=== PATIENT | male | born 1990 | race African-American/Black ===

== ENCOUNTER 2019-06-13 18:22 | Emergency (ER) | payer OTHER ==
[2019-06-13] MEDS ORDERED: TETRACAINE HCL 0.5% OPH SOLN 4 ML OU ONE (18:29)
[2019-06-13 18:35] VITALS: BP 139/74
--- NOTE | 2019-06-13 18:56 | ER Document Report ---
HPI - HPI Time Seen by Provider: 06/13/19 18:43 Pain Level: 3 Notes: Patient is a 28-year-old male no significant past medical history who presents complaining of bilateral eye irritation and some blurring of his vision there is been ongoing for the past 9 to 10 days. Patient was evaluated by his family doctor at that time and was placed on Polytrim for conjunctivitis. Patient states that he has not had any redness, but does have occasional "haziness" in his eyes. He does not have any floaters or complete loss of vision. He does not wear contact lenses. He has not had any headaches or fevers. He is able to eat and drink without difficulty. He is urinating normally. No other concerns or complaints. Denies any head injury, neck pain, URI, sore throat, chest pain, palpitations, syncope, cough, shortness of breath, wheeze, dyspnea, abdominal pain, nausea/vomiting/diarrhea, urinary retention, dysuria, hematuria, or rash. - ROS Systems Reviewed and Negative: Yes All other systems reviewed and negative - CONSTITUTIONAL Constitutional: DENIES: Fever, Chills - NEURO Neurology: REPORTS: Vision blurred Past Medical History - Social History Smoking Status: Unknown if Ever Smoked Family History: Reviewed & Not Pertinent Patient has suicidal ideation: No Patient has homicidal ideation: No Renal/ Medical History: Denies: Hx Peritoneal Dialysis Vertical Provider Document - CONSTITUTIONAL Agree With Documented VS: Yes Notes: PHYSICAL EXAMINATION: GENERAL: Well-appearing, well-nourished and in no acute distress. A&Ox4 HEAD: Atraumatic, normocephalic. EYES: Pupils equal round and reactive to light, extraocular movements intact, sclera anicteric, conjunctiva wnl b/l w/o discharge or matting. Non-tender to palp of the globe and eye itself. No surrounding erythema or swelling noted. Visual acuity 20/20 b/l and 20/25 in each eye (performed by myself at bedside with my own eye chart). Wood's lamp/flourescein: No abrasion, laceration, ulceration, or milton sign noted. No obvious foreign body appreciated. ENT: Nares patent and without discharge. oropharynx clear without exudates. No tonsilar hypertrophy or erythema. Moist mucous membranes. No sinus tenderness. Uvula midline. No palatine shift. No airway compromise. No drooling or hoarseness. NECK: Normal range of motion, supple without lymphadenopathy. No rigidity/meningismus. LUNGS: Breath sounds clear to auscultation bilaterally and equal. No wheezes rales or rhonchi. HEART: Regular rate and rhythm without murmurs, rubs, gallops. Musculoskeletal: Ext b/l: FROM to passive/active. Strength 5+/5. Extremities: No cyanosis, clubbing, or edema b/l. Peripheral pulses 2+. Capillary refill less than 3 seconds. NEUROLOGICAL: Cranial nerves grossly intact. Normal speech, normal gait. Normal sensory, motor exams PSYCH: Normal mood, normal affect. SKIN: Warm, Dry, normal turgor, no rashes or lesions noted. - INFECTION CONTROL TRAVEL OUTSIDE OF THE [place] IN LAST 30 DAYS: No Course - Re-evaluation Re-evalutation: 06/13/19 18:58 Patient is an afebrile, well-hydrated, 28-year-old male who presents to the emergency department with b/l eye irritation/blurring, unspecified. Pt does not have any eye pain or significant red eye. Vision is acceptable on visual acuity. Vitals are acceptable without significant tachycardia, tachypnea, or hypoxia. PE is otherwise unremarkable. Patient is nontoxic-appearing and is able to tolerate p.o. without difficulty. No labs or imaging warranted. He is still using the Polytrim drops from when he was diagnosed with conjunctivitis this past week. Low suspicion for any retained corneal or lid foreign body, deep space infection including orbital cellulitis/abscess, acute glaucoma, penetrating globe injury, retinal detachment, meningitis, sepsis, fracture, compartment syndrome. Conservative measures otherwise for symptoms with proper handwashing. Recheck with your PCM in 3-5 days. Patient to call ophthalmology tomorrow for evaluation and management. Return to the ED with any worsening/concerning symptoms otherwise as reviewed in discharge. Patient is in agreement. - Vital Signs Vital signs: Temp Pulse Resp BP Pulse Ox 97.8 F 88 20 139/74 H 99 06/13/19 18:33 06/13/19 18:33 06/13/19 18:33 06/13/19 18:33 06/13/19 18:33 Discharge - Discharge Clinical Impression: Irritation of both eyes Condition: Stable Disposition: HOME, SELF-CARE Additional Instructions: Keep eyes clean Avoid scratching/touching eyes Wash hands regularly Use eye drops as directed Maintain adequate fluid intake tylenol/ibuprofen as needed over the counter cold medication as needed for symptoms F/u: with your PCM in 2-3 days for a recheck Call ophthalmology tomorrow to schedule an appointment for further evaluation and management Return to the ED with any worsening symptoms and/or development of fever, headache, changes in vision, eye pain, worsening eye redness, redness around the eyes, purulent discharge, sore throat, facial swelling, neck pain/stiffness, chest pain, palpitations, syncope, shortness of breath, trouble breathing, abdominal pain, n/v/d, blood in stool/urine, dysuria, or other worsening symptoms that are concerning to you. Forms: Elevated Blood Pressure Referrals: KEELEY GARNICA MD [ACTIVE STAFF] - Follow up tomorrow
== END 2019-06-13 19:05 | disposition home or self-care (01) ==
LOC: ER 18:22
DX: H57.89 Other specified disorders of eye and adnexa (principal); H53.8 Other visual disturbances
CPT/HCPCS: 99283; J3490